=== PATIENT | female | born 1960 | race Asian ===

== ENCOUNTER 2019-01-25 10:25 | Day surgery (SDC) | payer OTHER ==
[~2019-01-25] VITALS: Ht 157.5 cm; Wt 46.4 kg
[~2019-01-25 10:25] MED LIST: BUPIVACAINE 0.25%/EPI 1:200,000/PF 10 ML VIAL ONE; CeFAZolin 2 GM/DEXTROSE 50 ML IV ONE; EPINEPHrine 1:1,000 [1 MG/ML] AMP ONE; RINGERS SOLUTION,LACTATED 1,000 ML IV ONE; SODIUM CL IRRIG SOLN BAG 3,000 ML IRRIG ONE; SODIUM CL IRRIG SOLN BAG 9,000 ML IRRIG ONE
[2019-01-25] MEDS ORDERED: ESMOLOL HCL 10 MG/ML 10 ML VIAL IVP ONE (10:26)
[2019-01-25] MEDS ORDERED: DEXAMETHASONE SOD PHOS 4 MG/ML VIAL IVP ONE (10:26)
[2019-01-25] MEDS ORDERED: MIDAZOLAM HCL 2 MG/2 ML VIAL IVP ONE (10:26)
[2019-01-25] MEDS ORDERED: PROPOFOL 1% 20 ML VIAL IVP ONE (10:26)
[2019-01-25] MEDS ORDERED: FentaNYL CITRATE-PF 100 MCG/2 ML VIAL IVP ONE (10:26)
[2019-01-25] MEDS ORDERED: ONDANSETRON HCL 4 MG/2 ML VIAL IVP ONE (10:26)
[2019-01-25] MEDS ORDERED: LIDOCAINE/PF 2% 5 ML VIAL IM ONE (10:26)
[2019-01-25] MEDS ORDERED: ROCURONIUM BROMIDE 10 MG/ML 5 ML VIAL IVP ONE (10:26)
[2019-01-25] MEDS ORDERED: KETOROLAC TROMETHAMINE 60 MG/2 ML VIAL IM ONE (10:26)
[2019-01-25] MEDS ORDERED: CeFAZolin 2 GM/DEXTROSE 50 ML IV ONE (11:00)
[2019-01-25] MEDS ORDERED: RINGERS SOLUTION,LACTATED 1,000 ML IV SCH (11:00)
[2019-01-25] MEDS ORDERED: SUGAMMADEX SODIUM 200 MG/2 ML VIAL IVP ONE (12:03)
[2019-01-25] MEDS ORDERED: ACETAMINOPHEN 1000 MG/ISO-OSM 100 ML IV ONE (12:03)
[2019-01-25] MEDS ORDERED: BUPIVACAINE HCL/PF 0.5% 30 ML VIAL ONE (12:07)
[2019-01-25] MEDS ORDERED: EPINEPHrine 1:1,000 [1 MG/ML] AMP ONE (13:03)
[2019-01-25] MEDS ORDERED: RINGERS SOLUTION,LACTATED 1,000 ML IV ONE (13:31)
[2019-01-25] MEDS ORDERED: LABETALOL HCL 5 MG/ML 20 ML VIAL IVP ONE (14:45)
[2019-01-25] MEDS ORDERED: HYDROmorphone 2 MG/ML SYRINGE IVP PRN (14:45)
[2019-01-25] MEDS ORDERED: FentaNYL CITRATE-PF 100 MCG/2 ML VIAL IVP PRN (14:45)
[2019-01-25] MEDS ORDERED: MEPERIDINE-PF 25 MG/ML VIAL IVP PRN (14:45)
[2019-01-25 15:08] VITALS: BP 194/103
[2019-01-25] MEDS ORDERED: OXYGEN THERAPY IH SCH (20:00)
== END 2019-01-25 16:45 | disposition home or self-care (01) ==
LOC: SURGERY 10:25
PROVIDERS: ATTEND Orthopaedic Surgery
DX: M75.101 Unspecified rotator cuff tear or rupture of right shoulder, not specified as traumatic (principal); M13.812 Other specified arthritis, left shoulder; M25.812 Other specified joint disorders, left shoulder; J45.909 Unspecified asthma, uncomplicated; G89.29 Other chronic pain; Z79.899 Other long term (current) drug therapy; Z98.890 Other specified postprocedural states
CPT/HCPCS: 29823; 29824; 29826; J0131; J0171; J0690; J1100; J1885; J2250; J2405; J2704; J3010; J3490 ×6; J7120